=== PATIENT | male | born 1980 | race Caucasian/White ===

== ENCOUNTER 2023-11-03 08:11 | Outpatient (OUT) | payer OTHER, SELFPAY ==
[2023-11-03 08:38] LABS: Hematocrit 49.4 % (42.0-54.0); Hemoglobin 16.9 g/dL (14.0-18.0); Mean Corpuscular HGB Conc 34.2 g/dL (29.9-35.2); Mean Corpuscular Hemoglobin 30.6 pg (25.9-34.0); Mean Corpuscular Volume 89.5 fL (80.0-94.0); Mean Platelet Volume 9.6 fL (9.5-13.5); Platelet Count 318 10^3/uL (150-450); Red Blood Count 5.52 10^6/uL (4.70-6.10); Red Cell Distribution Width 12.3 % (11.0-15.0); White Blood Count 16.6 10^3/uL (4.0-11.0)
[2023-11-03 08:42] LABS: Estimated Average Glucose 126 mg/dL
[2023-11-03 09:28] LABS: Alanine Aminotransferase 68 U/L (16-63); Albumin Level 4.2 g/dL (3.4-5.0); Alkaline Phosphatase 68 U/L (46-116); Anion Gap 9.7; Aspartate Amino Transferase 23 U/L (15-37); BUN Creatinine Ratio 12.2; Bilirubin Total 0.4 mg/dL (0.2-1.0); Carbon Dioxide 32.3 mmol/L (21.0-32.0); Chloride 99 mmol/L (98-107); Chol HDL Ratio 5.9; Cholesterol 218 mg/dL (<=200); Estimated GFR (African America >60 (>=60); Estimated GFR (Non-African Ame >60 (>=60); Globulin 4.1 g/dL; Glucose 135 mg/dL (74-106); HDL Cholesterol 37 mg/dL (40-60); Sodium 137 mmol/L (136-145); Total Protein 8.3 g/dL (6.4-8.2); Triglycerides 280 mg/dL (<=150)
[2023-11-04 07:09] LABS: HCV Ab Non Reactive (Non Reactive); HIV Ab/p24 Ag Screen Non Reactive (Non Reactive)
== END 2023-11-03 08:12 | disposition home or self-care (01) ==
LOC: LAB 08:15
PROVIDERS: PCP Nurse Practitioner Primary Care; Visit Provider Nurse Practitioner Primary Care
DX: Z00.00 Encounter for general adult medical examination without abnormal findings (principal); Z13.6 Encounter for screening for cardiovascular disorders; Z11.59 Encounter for screening for other viral diseases; Z11.4 Encounter for screening for human immunodeficiency virus [HIV]
CPT/HCPCS: 36415; 80053; 80061; 83036; 85027; 86803; 87389

== ENCOUNTER 2024-04-08 07:18 | Emergency (ER) | payer OTHER, SELFPAY ==
[2024-04-08 07:22] VITALS: BP 182/113; PULSE 87; TEMP 36.6; O2SAT 100; BMI 28.2
--- OUTSIDE RECORDS SUMMARY | 2024-04-08 07:33 | XMS_ITS | CCD ---
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 Name Role Phone NATANAELC, DR KAUFMAN Attending Unavailable MISC, DR KAUFMAN Consulting Unavailable MISC, DR KAUFMAN Admitting Unavailable SHAMMO, ELVIA Primary Care Unavailable SHAMMO, ELVIA Attending Unavailable SHAMMO, ELVIA Consulting Unavailable SHAMMO, ELVIA Primary Care Unavailable SHAMMO, ELVIA Admitting Unavailable SHAMMO, ELVIA Admitting Unavailable SHAMMO, ELVIA Attending Unavailable ZIEBER, DR JACOB Deal Consulting Unavailable SHAMMO, ELVIA Primary Care Unavailable SHAMMO, ELVIA Consulting Unavailable Unavailable Primary Care Provider UnavailCORI Harris Attending Unavailable SHAMMO, ELVIA Primary Care Unavailable YERCORI ZAMORA Attending Unavailable SHAMMO, ELVIA Referring Unavailable SHAMMO, ELVIA Primary Care Unavailable JENNIFERRCORI ZAMORA Referring Unavailable YERGLERCORI Referring Unavailable SHAMMO, ELVIA Primary Care Unavailable JENNIFERRCORI ZAMORA Referring Unavailable SHAMMO, ELVIA Primary Care Unavailable CORI COREA Referring Unavailable SHAMMO, ELVIA Primary Care Unavailable CORI LUGO Attending Unavailable YERRHETTERCORI Referring Unavailable SHAMMO, ELVIA Primary Care Unavailable MRIOSLAVA CURTIS Admitting Unavailable MIROSLAVA CURTIS Attending Unavailable CORI COREA Referring Unavailable SHAMMO, ELVIA Primary Care Unavailable MIROSLAVA CURTIS Attending Unavailable CURTISMIROSLAVA E Referring Unavailable SHAMMO, ELVIA Primary Care Unavailable SELENE MANJARREZ Attending Unavailable SHAMMO, ELVIA Primary Care Unavailable Medications Current Medications Medication Drug Class(es) Dates Sig (Normalized) Sig (Original) amLODIPine 10 mg oral tablet (2 sources) Dihydropyridine Calcium Channel Bony Start: 02-08-2022 take 1 tablet by mouth in the morning amLODIPine (NORVASC) 10 mg tablet Indications: Essential hypertension Take 1 tablet (10 mg total) by mouth in the morning. 30 tablet 3 02/08/2022 Active atorvastatin 20 mg oral tablet (2 sources) HMG-CoA Reductase Inhibitor Start: 02-08-2022 take 1 tablet by mouth in the morning atorvastatin (LIPITOR) 20 mg tablet Indications: Mixed hyperlipidemia Take 1 tablet (20 mg total) by mouth in the morning. 30 tablet 3 02/08/2022 Active cetirizine hydrochloride 10 mg oral tablet (2 sources) Histamine-1 Receptor Antagonist Start: 02-08-2022 take 1 tablet by mouth once daily at bedtime cetirizine (ZyrTEC) 10 mg tablet Indications: Seasonal allergic rhinitis due to other allergic trigger Take 1 tablet (10 mg total) by mouth once daily at bedtime. 30 tablet 3 02/08/2022 Active DULoxetine 60 mg delayed release oral capsule (2 sources) Serotonin and Norepinephrine Reuptake Inhibitor Start: 02-08-2022 take 1 capsule by mouth in the morning DULoxetine (CYMBALTA) 60 mg capsule Indications: Bipolar 1 disorder, mixed (CMS-HCC) , Chronic bilateral low back pain with right-sided sciatica Take 1 capsule (60 mg total) by mouth in the morning. 30 capsule 3 02/08/2022 Active fluticasone propionate 0.05 mg/actuat metered dose nasal spray (2 sources) Corticosteroid Start: 02-08-2022 take 1 spray(s) nasal route in the morning fluticasone propionate (FLONASE) 50 mcg/actuation nasal spray Indications: Seasonal allergic rhinitis due to other allergic trigger Administer 1 spray into each nostril in the morning. 16 g 3 02/08/2022 Active ibuprofen 800 mg oral tablet (2 sources) Nonsteroidal Anti-inflammatory Drug Start: 12-16-2020 take 1 tablet by mouth every eight hours as needed for pain ibuprofen (ADVIL,MOTRIN) 800 mg tablet Indications: Chronic left-sided low back pain with bilateral sciatica Take 1 tablet (800 mg total) by mouth every 8 (eight) hours as needed for pain. Take with food 90 tablet 0 12/16/2020 Active lisinopril 40 mg oral tablet (2 sources) Angiotensin Converting Enzyme Inhibitor Start: 02-08-2022 take 1 tablet by mouth in the morning lisinopriL (PRINIVIL,ZESTRIL) 40 mg tablet Indications: Essential hypertension Take 1 tablet (40 mg total) by mouth in the morning. 30 tablet 3 02/08/2022 Active pregabalin 150 mg oral capsule (2 sources) Start: 02-08-2022 pregabalin (LYRICA) 150 mg capsule Indications: Lumbar radiculopathy , Spondylolisthesis of lumbar region Take 1 capsule (150 mg total) by mouth in the morning and 1 capsule (150 mg total) at noon and 1 capsule (150 mg total) before bedtime. 90 capsule 2 02/08/2022 Active QUEtiapine 50 mg oral tablet (2 sources) Atypical Antipsychotic Start: 02-08-2022 take 1 tablet by mouth once daily QUEtiapine (SEROqueL) 50 mg tablet Indications: Bipolar 1 disorder, mixed (CMS-HCC) Take 1 tablet (50 mg total) by mouth nightly. 30 tablet 3 02/08/2022 Active Problems Active Problems Problem Classification Problem Date Documented Date Episodic/Chronic Diabetes mellitus without complication (1 source) Type 2 diabetes mellitus without complications; Translations: [TYPE 2 DM WITHOUT COMPLICATIONS] Onset: 08-21-2022 Chronic Disorders of lipid metabolism (2 sources) Mixed hyperlipidemia; Translations: [Mixed hyperlipidemia] Onset: 06-03-2019 06-03-2019 Chronic Essential hypertension (6 sources) Essential (primary) hypertension; Translations: [Essential hypertension] Onset: 05-29-2019 Chronic Other liver diseases (1 source) Fatty (change of) liver, not elsewhere classified; Translations: [FATTY CHANGE LIVER NEC] Onset: 09-15-2022 Chronic Other liver diseases (4 sources) Abnormal levels of other serum enzymes; Translations: [ABNORMAL LEVELS OTHER SERUM ENZYMES] Onset: 09-13-2022 Episodic Other nervous system disorders (2 sources) Other chronic pain; Translations: [Other chronic pain] Onset: 05-05-2021 Chronic Residual codes; unclassified (4 sources) Obstructive sleep apnea (adult) (pediatric); Translations: [OBSTRUCTIVE SLEEP APNEA] Onset: 11-16-2022 Chronic Spondylosis; intervertebral disc disorders; other back problems (5 sources) Displacement of intervertebral disc, site unspecified, without myelopathy; Translations: [Herniation of intervertebral disc] Onset: 03-11-2016 05-05-2021 Chronic Spondylosis; intervertebral disc disorders; other back problems (15 sources) Lumbar radiculopathy; Translations: [Radiculopathy, lumbar region] Onset: 03-08-2006 10-16-2017 Episodic Unclassified (1 source) Consult Onset: 12-12-2023 Unclassified (1 source) Spinal stenosis of lumbar region with neurogenic claudication [M48.062] Onset: 04-05-2024 Unclassified (1 source) Low back pain, unspecified; Translations: [Low back pain, unspecified] Onset: 05-05-2021 Past or Other Problems Problem Classification Problem Date Documented Date Episodic/Chronic Anxiety disorders (2 sources) Mixed anxiety and depressive disorder; Translations: [Other specified anxiety disorders] Onset: 05-29-2019 Resolved: 05-29-2019 05-29-2019 Chronic Blindness and vision defects (2 sources) Does use contact lenses; Translations: [Presence of spectacles and contact lenses] Onset: 05-29-2019 Resolved: 05-29-2019 05-29-2019 Episodic Mood disorders (2 sources) Mood disorders Onset: 02-08-2022 02-08-2022 Noninfectious gastroenteritis (2 sources) Chronic diarrhea; Translations: [Noninfective gastroenteritis and colitis, unspecified] Onset: 05-29-2019 05-29-2019 Episodic Other acquired deformities (2 sources) Lumbar spondylolisthesis; Translations: [Spondylolisthesis, lumbar region] Onset: 07-27-2016 05-29-2019 Episodic Other acquired deformities (2 sources) Spondylolisthesis, grade 1; Translations: [Spondylolisthesis, site unspecified] Onset: 10-17-2016 Resolved: 05-29-2019 05-29-2019 Episodic Other connective tissue disease (2 sources) Arthrodesis status; Translations: [Arthrodesis status] Onset: 12-12-2023 Episodic Other ear and sense organ disorders (2 sources) Hearing loss; Translations: [Unspecified hearing loss, unspecified ear] Onset: 05-29-2019 Resolved: 05-29-2019 05-29-2019 Chronic Other ear and sense organ disorders (2 sources) Bilateral tinnitus; Translations: [Tinnitus, bilateral] Onset: 05-29-2019 Resolved: 05-29-2019 05-29-2019 Episodic Other nervous system disorders (2 sources) Anesthesia of skin; Translations: [Anesthesia of skin] Onset: 12-12-2023 Episodic Other nervous system disorders (2 sources) Other abnormalities of gait and mobility; Translations: [Other abnormalities of gait and mobility] Onset: 12-12-2023 Episodic Other nutritional; endocrine; and metabolic disorders (1 source) Body mass index (BMI) 29.0-29.9, adult; Translations: [BODY MASS INDEX BMI 29.0-29.9 ADULT] Onset: 08-21-2022 Episodic Other screening for suspected conditions (not mental disorders or infectious disease) (1 source) Encounter for screening for cardiovascular disorders; Translations: [ENC FOR SCREENING FOR CV DISORDERS] Onset: 08-21-2022 Episodic Other skin disorders (2 sources) Decorative tattoo; Translations: [Other specified disorders of pigmentation] Onset: 05-29-2019 Resolved: 05-29-2019 05-29-2019 Episodic Residual codes; unclassified (2 sources) Tobacco use and exposure - finding; Translations: [Tobacco use] Onset: 05-29-2019 05-29-2019 Episodic Residual codes; unclassified (2 sources) History of surgical procedure on mouth; Translations: [Personal history of other medical treatment] Onset: 05-29-2019 Resolved: 05-29-2019 05-29-2019 Episodic Substance-related disorders (2 sources) Marijuana user; Translations: [Cannabis use, unspecified, uncomplicated] Onset: 05-29-2019 05-29-2019 Episodic Unclassified (2 sources) Onset: 02-08-2022 02-08-2022 Results Test Name Value Interpretation Reference Range Facility Glucose Glucometer (BldC) [M ass/Vol]on 04-05-2024 Glucose [Mass/Vol] 128 mg/dL High 65-99 [facility] MR CERVICAL SPINE WO CONTon 02-17-2024 MR CERVICAL SPINE WO CONT MR CERVICAL SPINE WO CONT Study: Cervical spine MRI without contrast. History: Chronic neck pain. Anterospondylolisthesis with flexion at C4-5 and C5-6 suggesting ligament laxity Comparison: L-spine x-ray from January 09 Technique: Routine multiplanar multisequence MR imaging of the cervical spine was performed without contrast. Findings: No disc herniations or stenosis at any imaged level. No foraminal narrowing or lateral recess stenosis or canal stenosis No paraspinal lesions Appropriate signal within the vertebra posterior elements and cervical cord No disc herniation Anterior and posterior longitudinal spinal ligaments and interspinous ligaments and supraspinous ligaments appropriate No subluxation C4-5 and C5-6 in the neutral position and no ligament disruption IMPRESSION: Essentially unremarkable MRI spine. Finalized by Efren Kilpatrick MD on 02/17/2024 9:38 AM Normal [facility] MR LUMBAR SPINE W WO CONTon 02-14-2024 MR LUMBAR SPINE W WO CONT MR LUMBAR SPINE W WO CONT MR LUMBAR SPINE W WO CONT CLINICAL INFORMATION: Low back pain, lumbar fusion, right-sided sciatica, bilateral lower extremity numbness COMPARISON: MR lumbar spine 06/16/2021 PROCEDURE: Routine lumbosacral spine protocol MRI was obtained without and with contrast material. Multisequence, multiplanar imaging was obtained. Patient received ProHance. No adverse reaction is reported FINDINGS: Numbering assumes 5 lumbar type vertebrae. There is normal alignment of the lumbar spine. No compression deformities. No significant intervertebral disc space narrowing. Patient status post L5-S1 fusion with interbody spacer device. The degree of anterolisthesis at L5-S1 is unchanged when compared to prior dating back to 2020. No suspicious bone marrow signal. No pathologic enhancement in the vertebral bodies or disc spaces is noted. No abnormal enhancement of the conus is seen. The visualized cord is within normal limits. Normal appearance of the cauda equina nerve roots. The conus medullaris terminates at L1. Paravertebral and visualized intraabdominal structures are unremarkable. Level by level: L1-L2: No significant disc herniation, spinal canal stenosis or neuroforaminal narrowing. L2-L3: No significant disc herniation, spinal canal stenosis or neuroforaminal narrowing. L3-L4: No significant disc herniation, spinal canal stenosis or neuroforaminal narrowing. Mild facet arthrosis with small amount of edema/fluid within the facet joints L4-L5: Moderate facet arthrosis causing mild bilateral neural foraminal narrowing. No significant spinal canal stenosis. L5-S1: Postsurgical changes following fusion at this level. There is no evidence of spinal canal stenosis. IMPRESSION: * Stable postoperative changes at L5-S1 without acute complication. * Moderate facet arthrosis at L4-L5 causes mild bilateral neuroforaminal narrowing. Approved by Resident Jesu Marte DO on 02/14/2024 11:13 AM Nimo Butler MD have personally reviewed the image(s) and agree with and/or edited the report Finalized by Nimo Reynolds MD on 02/14/2024 11:30 AM Normal [facility] XR SPINE CERVICAL AP, LAT, F PALMIRA/EXTENon 01-10-2024 XR SPINE CERVICAL AP, LAT, FLEX/EXTEN XR SPINE CERVICAL AP, LAT, FLEX/EXTEN History:Patient states that he has had neck pain for few months without injury radiculopathy both arms greater on the right AP, lateral, open-mouth odontoid as well as lateral flexion and extension views cervical spine Comparison:None Findings: The vertebral body heights are maintained. Mild ligamentous laxity is suggested at C4-5 and C5-6 with mild anterolisthesis at these levels flexion which normalizes with extension. The listhesis is less than 2 mm at each of these levels. The remaining vertebrae are well aligned and stable with flexion and extension. The vertebral body heights are maintained. C1/2 facet alignment appears within normal limits. Impression:Essentially unremarkable study. Mild localized ligamentous laxity is suggested at C4-5 and C5-6 as described above. Otherwise negative. Finalized by Yuni Helms MD on 01/10/2024 2:39 PM Normal [facility] XR LUMBAR SPINE AP, LATERAL, FLEXION AND EXTENSION ONLYon 12-10-2023 XR LUMBAR SPINE AP, LATERAL, FLEXION AND EXTENSION ONLY XR LUMBAR SPINE AP, LATERAL, FLEXION AND EXTENSION ONLY HISTORY: A 43-year-old male with the history of the prior lumbar spinal fusion surgery in 2020. Complaining of low back pain and tingling and numbness in the right lower leg. TECHNIQUE: Lumbar spine including flexion and extension views: 4 views COMPARISON: Comparison is made with the lumbar spine radiographs of 12/03/2021. FINDINGS: Vertebral heights are normal. There is no evidence of fracture or acute bony pathology. There is a surgical posterior lumbar spinal fusion at L5-S1 with fixation screws, rods and intervertebral spacers. There is a anterolisthesis at the level of the fusion. No interval change from prior study. Postsurgical changes seen. Rest of the disc spaces are intact. Pedicles are intact. Both sacroiliac joints are intact. Lateral views in the flexion and extension positions reveal no abnormal movements. IMPRESSION: * Surgical posterior lumbar spinal fusion at L5-S1 with postsurgical change. No hardware complications are seen. * No evidence of abnormal movements. Finalized by Robert Watters MD on 12/10/2023 9:39 AM Normal [facility] US SINGLE QUAD RT UPPERon US SINGLE QUAD RT UPPER EXAMINATION: US SINGLE QUAD RT UPPER HISTORY: High enzyme level in serum ; elevated liver enzymes COMPARISON: No relevant comparison available. TECHNIQUE: Transabdominal evaluation of the right upper quadrant. FINDINGS: LIVER: Fatty infiltration. Color Doppler demonstrates patent hepatic veins. PORTAL VEIN: Duplex Doppler demonstrates normal hepatopetal flow pattern with flow velocity averaging 43 cm/s. GALLBLADDER: Contains a small amount of sludge. No visible gallstones, wall thickening, or pericholecystic free fluid. Negative sonographic Harman's sign. BILIARY: No abnormal dilation or stones. Common bile duct diameter is within normal limits. PANCREASE: No visible mass, abnormal atrophy, or duct dilation. KIDNEY: No hydronephrosis. No visible mass or stones. Size: 11.0 x 5.6 x 5.9 cm IMPRESSION: 1. Mild fatty infiltration of liver. Otherwise unremarkable right upper quadrant ultrasound. Electronically authenticated by: JACOB DEMPSEY Date: 2022-09-13 08:52 Normal [facility] DIRECT LDLon 08-18-2022 Cholesterol in LDL [Mass/Vol] 162 mg/dL Normal [facility] Comment on above: Performed By: #### L IPID, DLDL, CMP #### [facility] [address] [address] [address] Tapan Bejarano DLDL NORMAL SEE BELOW Normal [facility] Comment on above: Result Comment: <100 mg/dl OPTIMAL 100 - 129 mg/dl NEAR OR ABOVE OPTIMAL 130 - 159 mg/dl BORDERLINE HIGH 160 - 189 mg/dl HIGH >190 mg/dl VERY HIGH Performed By: #### L IPID, DLDL, CMP #### [facility] [address] [address] [address] Tapan Bejarano GLYCOHEMOGLOBIN A1Con 2021 ADA RECOMMENDATION SEE BELOW Normal [facility] Comment on above: Result Comment: ADA RECOMMENDED LIMIT 4.0 - 6.0 ADA THERAPEUTIC TARGET < 7.0 ACTION SUGGESTED > 7.0 Performed By: #### A 1C #### [facility] [address] [place] [address] Dr. Tapan Bejarano Glucose [Mass/Vol] 134 mg/dL Normal [facility] Comment on above: Performed By: #### A 1C #### [facility] [address] [place] [address] Dr. Tapan Bejarano HbA1c (Bld) [Mass fraction] 6.3 % Critically high 4.5-6.2 [facility] Comment on above: Performed By: #### A 1C #### [facility] [address] [place] [address] Dr. Tapan Bejarano HEMOGRAM AND PLATELon 2021 Hematocrit (Bld) [Volume fraction] 47.3 % Normal 42.0-54.0 [facility] Comment on above: Performed By: #### H H #### [facility] [address] [place] [address] Dr. Tapan Bejarano Hemoglobin (Bld) [Mass/Vol] 15.7 g/dL Normal 14.0-18.0 [facility] Comment on above: Performed By: #### H H #### [facility] [address] [place] [address] Dr. Tapan Bejarano MCH (RBC) [Entitic mass] 29.8 pg Normal 25.9-34.0 [facility] Comment on above: Performed By: #### H H #### [facility] [address] [place] [address] Dr. Tapan Bejarano MCHC (RBC) [Mass/Vol] 33.2 g/dL Normal 29.9-35.2 [facility] Comment on above: Performed By: #### H H #### [facility] [address] [place] [address] Dr. Tapan Bejarano MCV (RBC) [Entitic vol] 89.8 fL Normal 80.0-94.0 [facility] Comment on above: Performed By: #### H H #### [facility] [address] [place] [address] Dr. Tapan Bejarano PLT 340 103/ul Normal 150-450 [facility] Comment on above: Performed By: #### H H #### [facility] [address] [address] [address] Tapan Bejarano RBC 5.27 106/ul Normal 4.70-6.10 [facility] Comment on above: Performed By: #### H H #### [facility] [address] [address] [address] Tapan Bejarano WBC 12.2 103/ul Critically high 4.0-11.0 [facility] Comment on above: Performed By: #### H H #### [facility] [address] [address] [address] Tapan Bejarano LIPID PROFILEon 08-18-2022 CHOL-HDL RATIO NORM SEE BELOW Normal [facility] Comment on above: Result Comment: 3.3 - 4.4 LOW RISK 4.4 - 7.1 AVERAGE RISK 7.1 - 11.0 MODERATE RISK >11.0 HIGH RISK Performed By: #### L IPID, DLDL, CMP #### [facility] [address] [address] [address] Tapan Bejarano Cholesterol [Mass/Vol] 301 mg/dL Critically high <=200 [facility] Comment on above: Performed By: #### L IPID, DLDL, CMP #### [facility] [address] [address] [address] Tapan Bejarano Cholesterol in HDL [Mass/Vol] 30 mg/dL Critically low 40-60 [facility] Comment on above: Performed By: #### L IPID, DLDL, CMP #### [facility] [address] [address] [address] Tapan Bejarano Cholesterol.total/C holesterol in HDL [Mass ratio] 10.0 {ratio} Normal [facility] Comment on above: Performed By: #### L IPID, DLDL, CMP #### [facility] [address] [address] [address] Tapan Bejarano HDL NORMAL > or = 60 mg/dl - LO W CARDIOVASCULAR RISK <40 mg/dl - HIGH CARDIOVASCULAR RISK Normal [facility] Comment on above: Performed By: #### L IPID, DLDL, CMP #### [facility] [address] [address] [address] Tapan Bejarano Triglyceride [Mass/Vol] 784 mg/dL Critically high <=150 [facility] Comment on above: Performed By: #### L IPID, DLDL, CMP #### [facility] [address] [address] [address] Tapan Bejarano VLDL CALC 156.8 mg/dL Normal [facility] Comment on above: Performed By: #### L IPID, DLDL, CMP #### [facility] [address] [address] [address] Tapan Bejarano MICROALBUMIN, RAND URon 08-04 mALB <1.3 Normal <=30.0 [facility] Comment on above: Performed By: #### M ALBR #### [facility] [address] [address] [address] Tapan Bejarano PROF 14(COMP METB)on 022 Albumin [Mass/Vol] 3.8 g/dL Normal 3.4-5.0 [facility] Comment on above: Performed By: #### L IPID, DLDL, CMP #### [facility] [address] [place] [address] Dr. Tapan Bejarano Albumin/Globulin [Mass ratio] 0.9 {ratio} Normal [facility] Comment on above: Performed By: #### L IPID, DLDL, CMP #### [facility] [address] [address] [address] Tapan Bejarano ALP [Catalytic activity/Vol] 86 U/L Normal 46-[address] [facility] Comment on above: Performed By: #### L IPID, DLDL, CMP #### [facility] [address] [address] [address] Tapan Bejarano ALT [Catalytic activity/Vol] 141 U/L Critically high 16-63 [facility] Comment on above: Performed By: #### L IPID, DLDL, CMP #### [facility] [address] [place], [place] [id number] Dr. Tapan Bejarano Anion gap [Moles/Vol] 12.7 mmol/L Normal [facility] Comment on above: Performed By: #### L IPID, DLDL, CMP #### [facility] [address] [place] [address] Dr. Tapan Bejarano AST [Catalytic activity/Vol] 56 U/L Critically high 15-37 [facility] Comment on above: Performed By: #### L IPID, DLDL, CMP #### [facility] [address] [place] [address] Dr. Tapan Bejarano Bilirubin [Mass/Vol] 0.4 mg/dL Normal 0.2-1.0 [facility] Comment on above: Performed By: #### L IPID, DLDL, CMP #### [facility] [address] [place] [address] Dr. Tapan Bejarano Calcium [Mass/Vol] 8.9 mg/dL Normal 8.5-10.1 [facility] Comment on above: Performed By: #### L IPID, DLDL, CMP #### [facility] [address] [place] [address] Dr. Tapan Bejarano Chloride [Moles/Vol] 102 mmol/L Normal 98-[address] [facility] Comment on above: Performed By: #### L IPID, DLDL, CMP #### [facility] [address] [place] [address] Dr. Tapan Bejarano CO2 [Moles/Vol] 28.4 mmol/L Normal 21.0-32.0 [facility] Comment on above: Performed By: #### L IPID, DLDL, CMP #### [facility] [address] [address] [address] Tapan Bejarano Creatinine [Mass/Vol] 0.84 mg/dL Normal 0.70-1.30 [facility] Comment on above: Performed By: #### L IPID, DLDL, CMP #### [facility] [address] [address] [address] Tapan Bejarano EGFR-AF [place] >60 Normal >=60 [facility] Comment on above: Performed By: #### L IPID, DLDL, CMP #### [facility] [address] [address] [address] Tapan Bejarano EGFR-NON AF [place] >60 Normal >=60 [facility] Comment on above: Performed By: #### L IPID, DLDL, CMP #### [facility] [address] [address] [address] Tapan Bejarano Globulin (S) [Mass/Vol] 4.0 g/dL Normal [facility] Comment on above: Performed By: #### L IPID, DLDL, CMP #### [facility] [address] [address] [address] Tapan Bejarano Glucose [Mass/Vol] 154 mg/dL Critically high 74-[address] [facility] Comment on above: Performed By: #### L IPID, DLDL, CMP #### [facility] [address] [address] [address] Tapan Bejarano Potassium [Moles/Vol] 4.1 mmol/L Normal 3.5-5.1 [facility] Comment on above: Performed By: #### L IPID, DLDL, CMP #### [facility] [address] [place] [address] Dr. Tapan Bejarano Protein [Mass/Vol] 7.8 g/dL Normal 6.4-8.2 [facility] Comment on above: Performed By: #### L IPID, DLDL, CMP #### [facility] [address] [address] [address] Tapan Bejarano Sodium [Moles/Vol] 139 mmol/L Normal 136-145 [facility] Comment on above: Performed By: #### L IPID, DLDL, CMP #### [facility] [address] [place] [address] Dr. Tapan Bejarano Urea nitrogen [Mass/Vol] 11.0 mg/dL Normal 7.0-18.0 [facility] Comment on above: Performed By: #### L IPID, DLDL, CMP #### [facility] [address] [place] [address] Dr. Tapan Bejarano Urea nitrogen/Creatinine [Mass ratio] 13.1 mg/mg Normal [facility] Comment on above: Performed By: #### L IPID, DLDL, CMP #### [facility] [address] [address] [address] Tapan Bejarano Encounters Encounter Date Encounter Type Care Provider Facility Start: 04-05-2024 End: 04-06-2024 ambulatory SELENE MANJARREZ [facility] Start: 04-05-2024 End: 04-05-2024 ambulatory MIROSLAVA CURTIS [facility] Start: 02-28-2024 End: 02-28-2024 ambulatory [facility] Start: 02-14-2024 End: 02-14-2024 [facility] Start: 01-23-2024 End: 01-23-2024 ambulatory [facility] Start: 01-10-2024 End: 01-10-2024 ambulatory [facility] Start: 12-28-2023 End: 02-03-2024 ambulatory [facility] Start: 12-12-2023 End: 12-12-2023 [facility] Start: 12-08-2023 End: 12-08-2023 [facility] Start: 11-07-2023 Orders Only Irene Harrington [facility] Comment on above: Low back pain, unspe cified back pain laterality, unspecified chronicity, unspecified whether sciatica present (Primary Dx) Start: 11-06-2023 Telephone encounter Mely costa MD Work Phone: [facility] Start: 11-16-2022 End: 11-17-[address] DOCTOR VALENCIA Facility:[facility]1 Start: 09-13-2022 End: 09-14-2022 ambulatory [facility] Facility:[facility] Start: 08-18-2022 End: 08-19-2022 ambulatory [facility] Facility: Start: 06-11-2019 Patient encounter status Mely Pacheco MD Work Phone: [facility] Procedures Date Procedure Procedure Detail Performing Clinician Start: 01-23-2024 Follow-up visit Follow-up CORI COREA Start: 02-08-2022 Adult depression screening assessment Mely Pacheco MD Work Phone: Plan of Treatment Date Care Activity Detail Author Start: 11-28-2023 End: 11-28-2023 Patient encounter procedure 11/28/2023 10:00 AM EDT Office Visit [facility] [address] [place] [address] Cori Corea, TRAVELING FREIGHT AGENT-HEALTH CARE RECRUITER [address] [place] [address] [facility] Start: 11-07-2023 End: 11-06-2024 XR Lumbar spine Views W flexion and W extension X-ray spine lumbar ap, lateral, flexion and extension only Imaging Routine Low back pain, unspecified back pain laterality, unspecified chronicity, unspecified whether sciatica present Expected: 11/07/2023, Expires: [facility]06[facility] Comment on above: Expected: 11/07/2023 , Expires: 11/06/2024 Start: 05-05-2023 Influenza vaccination Influenza Vacc ine [facility] Start: 02-08-2023 Adult BMI Screening Adult BMI Screen ing [facility] Start: 02-08-2023 Depression Screening Depression Scre ening [facility] Start: 02-08-2023 Tobacco Screening Tobacco Screening [facility] Start: 2000 DTaP,Tdap and Td Vaccines (1 - Tdap) DTaP,Tdap and Td Vaccines (1 - Tdap) [facility] Immunizations Immunization Date Immunization Notes Care Provider Fa cility 05-29-2019 influenza, injectabl e, quadrivalent, preservative free Mely Pacheco MD Work Phone: [employer] 05-29-2019 influenza virus vaccine, unspecified formulation Mely Pacheco MD Work Phone: [facility] Payers Date Payer Category Payer Medicaid [place] [employer] [place] [employer] [id number] 2003-Present [phone] [address] [facility] [place] [address] [id number] 1981 Unknown [id number] 1981 Unknown [id number] [id number] 1981 Unknown [id number] [id number] 1981 Unknown [id number] [id number] 1981 Unknown [id number] [id number] 1981 Unknown [id number] [id number] 1981 Unknown [id number] [id number] 1981 Unknown [id number] 2.16.840.1.741871.3.579.2.1286 1981 Unknown [id number] 2.16.840.1.370775.3.579.2.128 1981 Unknown [id number] [id number] 1981 Unknown [id number] 2.16.840.1.959903.3.579.2.1286 1981 Unknown [id number] 2.16.840.1.104338.3.579.2.1286 1981 Unknown [id number] 2.16.840.1.903625.3.579.2.1286 1981 Unknown [id number] [id number] 1981 Unknown [id number] [id number] 1959 Unknown [id number] Social History Date Type Detail Facility Start: 02-08-2022 Tobacco smoking status NHIS Ex-smoker [facility] End: 01-02-2022 History of tobacco use Current smoker [facility] End: 01-02-2022 History of tobacco use Cigarette Smoker [facility] Start: 03-25-2021 End: 02-08-2022 Cigarettes smoked current (pack per day) - Reported 0.5 [facility] Start: 02-08-2022 Tobacco use and exposure Smokeless tobacco non-user [facility] Start: 02-08-2022 Alcohol intake Ex-drinker (finding) [facility] Start: 03-25-2021 End: 02-08-2022 Social connection and isolation panel [facility] Do you belong to any clubs or organizations such as taoist groups, unions, fraternal or athletic groups, or school groups? Yes [facility] Are you now , , , , never or living with a partner? Living with partner [facility] How often to you hav e a drink containing alcohol? Monthly or less [facility] How many standard dr inks containing alcohol do you have on a typical day? 1 or 2 [facility] How often do you hav e 6 or more drinks on 1 occasion? Never [facility] How hard is it for y ou to pay for the very basics like food, housing, medical care, and heating Somewhat hard [facility] Adolescent depressio n screening assessment 4 [facility] Do you feel stress - tense, restless, nervous, or anxious, or unable to sleep at night because your mind is troubled all the time - these days [OSQ] Very much [facility] Start: 03-25-2021 [facility] Start: 10-16-2017 Alcohol Comment SOCIALLY, RARELY [facility] Start: 1980 Sex Assigned At Male [facility] Start: 03-10-2021 Sexual orientation Heterosexual (finding) [facility] Note 11-06-2023 Telephone Encounter - Reina Pal - 11/06/2023 1:57 PM EST Note Date & Type Note Facility 11-06-2023 Miscellaneous Notes Formattin g of this note might be different from the original. Received faxed referral for patient to be seen for Lumbar. Left voice message for patient to call back regarding scheduling an appointment. documented in this encounter [facility] Telephone encounter Note 11-06-2023 Telephone Encounter - Reina Pal - 11/06/2023 1:57 PM EST Note Date & Type Note Facility 11-06-2023 Telephone encount er Note Received faxed referral for patient to be seen for Lumbar. Left voice message for patient to call back regarding scheduling an appointment. [facility] Evaluation note Note Date & Type Note Facility Evaluation note Diagnosis Low back pain, unspecified back pain laterality, unspecified chronicity, unspecified whether sciatica present- Primary documented in this encounter [facility] Instructions Note Date & Type Note Facility Instructions Not on filedocumented in this en counter [facility] Summary Purpose Family History No Family History Records FoundNo Family History Records FoundNo Family History Records Found Advance Directives No Advanced Directives Records FoundNo Advanced Directives Records FoundNo Advanced Directives Records Found Additional Source Comments (unrecognized sect ion and content) No Status Records FoundNo Status Records FoundNo Status Records Found INFORMATION SOURCE (unrecogn ized section and content) DATE CREATED AUTHOR 11/22/2022 [facility] DATE CREATED AUTHOR AUTHOR'S ORGANIZ ATION 01/26/2024 [facility] DATE CREATED AUTHOR AUTHOR'S ORGANIZ ATION 04/08/2024 [facility] FOR RECORDS PERTAINING TO PATIENTS WHO ARE OR HAVE BEEN ENROLLED IN A CHEMICAL DEPENDENCY/SUBSTANCEABUSE PROGRAM, SOME INFORMATION MAY BE OMITTED. This clinical summary was aggregated from multiple sources. Caution should be exercised in using it in the provision of clinical care. This summary normalizes information from multiple sources, and as a consequence, information in this document may materially change the coding, format and clinical context of patient data. In addition, data may be omitted in some cases. CLINICAL DECISIONS SHOULD BE BASED ON THE PRIMARY CLINICAL RECORDS. [facility] [employer] provides no warranty or guarantee of the accuracy or completeness of information in this document.
--- NOTE | 2024-04-08 07:38 | CT_ITS ---
The [address] [address] Patient Name: YUNI RAMSEY MRN: [id number] date: 1980 Sex: M Assigned Patient Location: ER Current Patient Location: ER Accession/Order Number: [id number] Exam Date: 04/08/2024 07:57 Report Date: 04/08/2024 08:53 At the request of: JACK LOPEZ Procedure: CT soft tissue neck w con CT NECK WITH CONTRAST, 04/08/2024. HISTORY: Possible abscess behind left ear. History of cyst in this area. COMPARISON: None. TECHNIQUE: Postcontrast axial CT images obtained through the neck. Reconstructions obtained in the sagittal and coronal planes. Dose reduction techniques were achieved by using automated exposure control and/or adjustment of mA and/or kV according to patient size and/or use of iterative reconstruction technique. FINDINGS: The visualized intracranial contents are unremarkable. The paranasal sinuses are clear. The middle ear cavities and mastoid air cells are clear. Skull base intact. There is a small fluid collection in the subcutaneous fat in the posterior periauricular soft tissues in the region of interest. This measures approximately 6 mm in diameter and is most likely a small abscess. This could be an infected branchial cleft cyst. There is swelling, edema and enhancement in the subcutaneous fat in this area. There is swelling and edema in the subcutaneous fat along the lateral aspect of the neck superficial to the left sternocleidomastoid muscle. No other fluid collection identified. No soft tissue gas. The orbital contents appear normal to the extent visualized. Academic Affairs Dean spaces are normal. The parotid glands are normal. Submandibular glands normal. The tongue and floor of the mouth appear normal. Nasopharynx, oropharynx, and retropharyngeal space are normal. Epiglottis is normal. Vocal cords are symmetric. No laryngeal edema. Thyroid gland normal. Visualized portion of the trachea and esophagus appear normal. There is no carotid artery stenosis. Internal jugular veins are patent. No lymphadenopathy. Lung apices clear. Cervical spine is unremarkable. CT/CT soft tissue neck w con IMPRESSION: 1. There is a small abscess in the subcutaneous fat just deep to the skin surface in the posterior periauricular soft tissues on the left measuring approximately 6 mm. This may be an infected branchial cleft cyst. There is soft tissue swelling, edema and inflammation in the diffuse fat along the left side of neck. No other fluid collections. 2. The remainder of the neck is unremarkable. No lymphadenopathy. No masses. Electronically authenticated by: CRISTIAN ARRIETA Date: 04/08/2024 08:53
--- NOTE | 2024-04-08 07:40 | ED_ITS ---
HPI HPI - General Adult General Chief complaint: Skin/Abscess/Foreign Body Stated complaint: PAIN BEHIND LEFT EAR Time Seen by Provider: 04/08/24 07:22 Source: patient Mode of arrival: walk-in Limitations: no limitations History of Present Illness HPI narrative: 43-year-old male to the emergency department chief complaint of swelling in his left-sided neck. Patient reports he has what he has believed is a sebaceous cyst behind his left ear for some time. He reports it occasionally swells up but not draining. He reports has been increasing swelling for the last week. Yesterday it drained some purulent material and blood. He reports this morning he woke up however and he had edema on the left side of his neck which concerned him. Denies any fever, sweats, chills. No other medical problems. Related Data Previous Rx's ?Medication ?Instructions ?Recorded cephalexin 500 mg capsule 500 mg PO Q6H 7 days #28 caps 04/08/24 doxycycline monohydrate 100 mg 100 mg PO BID 7 days #14 caps 04/08/24 capsule Allergies Allergy/AdvReac Type Severity Reaction Status Date / Time No Known Drug Allergies Allergy Verified 04/08/24 07:22 Opioid HPI Opioid Management Most Recent Opioid Data: 2 No Data to Display Review of Systems ROS Status of ROS 10 or more systems reviewed and unremark able except as noted in history and below Exam Narrative Exam Narrative: VITALS: I have reviewed the triage vital signs. GENERAL: Well developed, well appearing adult in no acute distress. NEURO: Alert and oriented. Moves all extremities. Face is symmetric and expressive. EYES: PERRL. No scleral icterus or conjunctival injection. No discharge. HENT: Normocephalic, atraumatic. Hearing is grossly intact. Nares grossly patent and without discharge. Mucous membranes moist. Small sebaceous cyst behind the left ear. Edema and tenderness extending from the sebaceous cyst down into his left lateral neck. No redness, warmth, crepitance. NECK: No JVD. Patient moves neck without restriction. CARDIO: Rhythm regular. Normal rate. No murmur, rub, or gallop. Pulses equal bilaterally in the upper and lower extremity. No lower extremity edema. PULM: Lungs clear to auscultation in all marrero. No wheezes, rales, or rhonchi. No conversational dyspnea. No splinting, stridor, or accessory muscle use. GI/: Abdomen is soft and non-tender. Normoactive bowel sounds. EXTREMITIES: Symmetric muscle bulk. No joint swelling. No clubbing, cyanosis, or deformity. SKIN: Warm and dry. Normal turgor. No rash or lesions appreciated. PSYCH: Mood, affect, and interaction is appropriate to the setting. Constitutional Vital Signs, click to edit/add: Last Vital Signs Temp 97.8 F 04/08/24 07:22 Pulse 76 04/08/24 08:47 Resp 18 04/08/24 08:47 BP 151/98 H 04/08/24 08:47 Pulse Ox 100 04/08/24 08:47 Course Vital Signs Vital signs: Vital Signs Temperature 97.8 F 04/08/24 07:22 Pulse Rate 87 04/08/24 07:22 Respiratory Rate 18 04/08/24 07:22 Blood Pressure 182/113 H 04/08/24 07:22 Pulse Oximetry 100 04/08/24 07:22 Temperature 97.8 F 04/08/24 07:22 Pulse Rate 76 04/08/24 08:47 Respiratory Rate 18 04/08/24 08:47 Blood Pressure 151/98 H 04/08/24 08:47 Pulse Oximetry 100 04/08/24 08:47 Medical Decision Making MDM Narrative Medical decision making narrative: 43-year-old male to the emergency department chief complaint of sebaceous cyst with swelling to his left neck. Vital stable, the patient is afebrile. Obtain a CT scan to better help delineate the process, sebaceous cyst versus branchial cleft cyst. Lab work reviewed and noted. CT scan does show a small abscess versus brachial cleft cyst which is what is appreciated clinically by his left ear. Edema of subcutaneous tissue surrounding. No other abscess or extension of infection into the neck. Clinically there is nothing to drain at this time. The small abscess behind his left ear is spontaneously drained. Will place him on Keflex and doxycycline. Will give him ENT follow-up for excision of likely branchial cleft cyst. Return precautions were discussed. All questions were answered. The patient was discharged home. Medical Records Medical records reviewed: Yes I reviewed the patient's medical records Lab Data Lab results reviewed: Yes I reviewed the patient's lab results Labs: Lab Results 04/08/24 Range/Units 07:46 WBC 18.4 H (4.0-11.0) 10^3/uL RBC 4.83 (4.70-6.10) 10^6/uL Hgb 15.4 (14.0-18.0) g/dL Hct 43.6 (42.0-54.0) % MCV 90.3 (80.0-94.0) fL MCH 31.9 (25.9-34.0) pg MCHC 35.3 H (29.9-35.2) g/dL RDW 12.3 (11.0-15.0) % Plt Count 307 (150-450) 10^3/uL MPV 9.6 (9.5-13.5) fL Seg Neuts % (Manual) 78.0 H (43.0-75.0) Lymphocytes % (Manual) 16.0 L (20.5-60.0) % Monocytes % (Manual) 4.0 (1.7-12.0) % Eosinophils % (Manual) 1.0 (0.9-7.0) % Basophils % (Manual) 0.0 L (0.2-2.0) % Neutrophils # (Manual) 14.35 H (1.4-6.5) 10^3/uL Lymphocytes # (Manual) 2.94 (1.20-3.80) 10^3/uL Monocytes # (Manual) 0.73 (0.30-0.80) 10^3/uL Eosinophils # (Manual) 0.18 (0.00-0.70) 10^3/uL Basophils # (Manual) 0.00 (0.00-0.10) 10^3/uL Sodium 137 (136-145) mmol/L Potassium 3.3 L (3.5-5.1) mmol/L Chloride 97 L (98-107) mmol/L Carbon Dioxide 27.9 (21.0-32.0) mmol/L Anion Gap 15.4 BUN 11.0 (7.0-18.0) mg/dL Creatinine 1.00 (0.70-1.30) mg/dL Est GFR ( Amer) >60 (>=60) Est GFR (Non-Af Amer) >60 (>=60) BUN/Creatinine Ratio 11.0 Glucose 212 H (74-106) mg/dL Calcium 9.5 (8.5-10.1) mg/dL Imaging Data CT Neck: Attestation: I have reviewed the pertinent imaging results. Radiologist's impression: ITS Impressions Soft Tissue Neck CT 04/08/24 07:38 IMPRESSION: 1. There is a small abscess in the subcutaneous fat just deep to the skin surface in the posterior periauricular soft tissues on the left measuring approximately 6 mm. This may be an infected branchial cleft cyst. There is soft tissue swelling, edema and inflammation in the diffuse fat along the left side of neck. No other fluid collections. 2. The remainder of the neck is unremarkable. No lymphadenopathy. No masses. Electronically authenticated by: CRISTAIN ARRIETA Date: 04/08/2024 08:53 Discharge Plan Discharge Stand Alone Forms: Portal Instructions Chief Complaint: Skin/Abscess/Foreign Body Clinical Impression: Abscess of skin or subcutaneous tissue Patient Disposition: Home, Self-Care Time of Disposition Decision: 09:00 Condition: Good Mode of Transportation: Private Vehicle Prescriptions / Home Meds: New doxycycline monohydrate 100 mg capsule 100 mg PO BID 7 Days Qty: 14 0RF cephalexin 500 mg capsule 500 mg PO Q6H 7 Days Qty: 28 0RF Print Language: Khmer Instructions: Abscess (ED) Additional Instructions: Call the office of your primary care doctor to arrange for follow-up within the above-stated timeframe. Your ED visit was focused on your acute issue and does not replace primary care. You should review your labs, imaging, and diagnoses from this ED visit with your primary care physician. There may be non-emergent/ incidental findings that need further evaluation. You should review your vital signs including blood pressure with your PCP. If you were prescribed medications you should discuss possible side-effects and drug interactions with your pharmacist. Call 911 or go to the nearest Emergency Department if you develop any new or worsening symptoms. Return to the ED if there is worsening pain, swelling, redness or warmth. Take antibiotics as prescribed. Referrals: Radha Toro MD [Physician] - 1 week (Follow-up for suspected branchial cleft cyst) Nadir Sun NP [Primary Care Provider] - 1 week
[2024-04-08 07:51] VITALS: BP 163/99
[2024-04-08 07:53] LABS: Hematocrit 43.6 % (42.0-54.0); Hemoglobin 15.4 g/dL (14.0-18.0); Mean Corpuscular HGB Conc 35.3 g/dL (29.9-35.2); Mean Corpuscular Hemoglobin 31.9 pg (25.9-34.0); Mean Corpuscular Volume 90.3 fL (80.0-94.0); Mean Platelet Volume 9.6 fL (9.5-13.5); Platelet Count 307 10^3/uL (150-450); Red Blood Count 4.83 10^6/uL (4.70-6.10); Red Cell Distribution Width 12.3 % (11.0-15.0); White Blood Count 18.4 10^3/uL (4.0-11.0)
[2024-04-08 08:00] LABS: Anion Gap 15.4; Calcium 9.5 mg/dL (8.5-10.1); Carbon Dioxide 27.9 mmol/L (21.0-32.0); Chloride 97 mmol/L (98-107); Estimated GFR (African America >60 (>=60); Estimated GFR (Non-African Ame >60 (>=60); Glucose 212 mg/dL (74-106); Potassium 3.3 mmol/L (3.5-5.1); Sodium 137 mmol/L (136-145)
[2024-04-08 08:08] LABS: Lymphocytes Absolute Manual 2.94 10^3/uL (1.20-3.80); Monocytes Absolute Manual 0.73 10^3/uL (0.30-0.80); Segmented Neut Absolute Manual 14.35 10^3/uL (1.4-6.5)
[2024-04-08 08:09] LABS: Eosinophils Absolute Manual 0.18 10^3/uL (0.00-0.70)
[2024-04-08 08:47] VITALS: BP 151/98; PULSE 76; O2SAT 100
== END 2024-04-08 09:09 | disposition home or self-care (01) ==
PROVIDERS: Emergency Provider Student in an Organized Health Care Education/Training Program; PCP Nurse Practitioner Primary Care
DX: L02.11 Cutaneous abscess of neck (principal)
CPT/HCPCS: 36415; 70491; 80048; 85007; 85027; 99285; Q9967